=== PATIENT | female | born 1960 | race Caucasian/White ===

== ENCOUNTER → 2017-01-28 | Outpatient (CLI) | payer BC | LOC: MAMO 01-27 15:20 | DX: Z12.31 Encounter for screening mammogram for malignant neoplasm of breast (principal) | CPT/HCPCS: G0202 ==

== ENCOUNTER → 2017-02-09 | Outpatient (CLI) | payer BC | LOC: MAMO 08:30 → US 10:30 | DX: R92.2 Inconclusive mammogram (principal); Z90.710 Acquired absence of both cervix and uterus | CPT/HCPCS: 76641-LT; 76641-RT; G0206 ==

== ENCOUNTER 2021-06-20 15:11 | Emergency (ER) | payer BC ==
[~2021-06-20] VITALS: Ht 162.6 cm; Wt 63.5 kg
[~2021-06-20 15:11] MED LIST: ASPIRIN CHEWABL81 MG PO; CRESTOR20 MG PO; NORCO 10-325 T1 EACH PO; STOOL SOFTENER250 MG PO; SYNTHROID75 MCG PO; VITAMIN D32000 UNI1 PO; ZANTAC150 MG PO
== END 2021-06-20 18:00 | disposition home or self-care (01) ==
LOC: ER1 15:11
DX: U07.1 COVID-19 (principal); Z23 Encounter for immunization
CPT/HCPCS: 99283; M0243